=== PATIENT | male | born 1970 | race Caucasian/White ===

== ENCOUNTER 2016-06-16 10:24 | Day surgery (SDC) | payer OTHER ==
--- NOTE | 2016-06-15 19:11 | HISTORY AND PHYSICAL ---
ADMITTED: 06/16/2016 HISTORY OF PRESENT ILLNESS: The patient is a 46-year-old male who presents with a soft tissue mass on the left heel. States it has been there for quite some time. It has actually grown in size. It is now ruining his shoes and his boots. He says he has them in both, but the left is more painful. MEDICAL/SURGICAL HISTORY: Past medical history is essentially noncontributory. Past surgical history: He has had numerous shoulder and ankle surgeries. MEDICATIONS: 1. Currently on no medications. ALLERGIES: 1. HE REPORTS AN ALLERGY TO SULFA. PRIMARY CARE PROVIDER: Wayne Tuttle MD SOCIAL HISTORY: He is employed by [employer]. , does not smoke. Chews tobacco. Drinks socially. FAMILY HISTORY: Noncontributory to chief complaint. REVIEW OF SYSTEMS: A 10-point review of systems noncontributory to chief complaint. PHYSICAL EXAMINATION: GENERAL: The patient is alert and oriented x3. HEAD AND NECK: PERRLA. Normocephalic. HEART: Regular rate and rhythm. Regular S1 and S2. No murmurs, or gallops. LUNGS: Respirations clear to auscultation. No wheezing, rhonchi, or rales. ABDOMEN: Soft, tender, nondistended. No palpable nodes. Normal tones. LOWER EXTREMITY: Vascular: DP and PT pulses are palpable, +2/4. Skin texture and turgor within normal limits. Subpapillary venous plexus capillary refill within normal limits. There is a soft tissue mass of the left heel measuring approximately 2 x 1 cm. Negative transluminescence. IMPRESSION: 1. Soft tissue mass resembling a pyogenic nodule, consistent with herniation of the fat pad PLAN: The patient is scheduled for an outpatient procedure, removal of the soft tissue mass. He is well aware of the planned procedure. There are no contraindications to surgery at this time. Surgery is scheduled on an outpatient basis on 06/16/2016 at [facility].
--- NOTE | 2016-06-16 11:09 | NUR ---
PRE OP INSTRUCTIONS GIVEN AND SAFETY ISSUES DISCUSSED PT HAD QUESTIONS ANSWERED PT CONFIRMED PROCEDURE PT VERIFIED SIGNATURE PT MARKED SITE
--- NOTE | 2016-06-16 14:02 | Provider's Discharge Care Plan ---
Problem, Goal, Plan Problem List 1. Neoplasm of unspecified behavior of bone, soft tissue, and skin Goals: Improve function Instructions: Follow up as directed
--- NOTE | 2016-06-16 14:02 | Provider's Discharge Care Plan ---
Problem, Goal, Plan Problem List 1. Neoplasm of unspecified behavior of bone, soft tissue, and skin Goals: Improve function Instructions: Follow up as directed
--- NOTE | 2016-06-16 14:21 | NUR ---
AWAKE, ALERT ON ARRIVAL TO PACU. LLE ELEVATED ON PILLOW, TOES, WARM, REPORTS ABLE TO FEEL SOME LOCALIZED PAIN AT SURGICAL SITE REGION. REPORTS MIND IS SPARPER THAN THIS SPEAKING
--- NOTE | 2016-06-16 14:49 | NUR ---
PAIN LEVEL RELIEVED FROM A 6/10 TO 4/10 FOLLOWING ADMINISTRATION [employer] FENTANYL IVSEEN BY SURGEON PRIOR TO RETURN TO SCU
--- NOTE | 2016-06-16 14:53 | NUR ---
PT RETURNED FROM PACU LEFT FOOT ELEVATED ICE TO FOOT DRESSING DRY AND INTACT STATED NO DISCOMFORT
--- NOTE | 2016-06-16 15:51 | NUR ---
PT UP AT BEDSIDE HAS REMAINED COMFORTABLE ASKING TO GO HOME REVIEWED DISCHARGE INSTRUCTIONS VERBAL AND WRITTEN PT AND SPOUSE EXPRESSED UNDERSTANDING PT DISCHARGED PER WC ACCOMPANIED BY SPOUSE
--- NOTE | 2016-06-16 20:33 | OPERATIVE REPORT ---
DATE OF SURGERY: 06/16/2016 SURGEON: Salazar Campbell DPM PREOPERATIVE DIAGNOSIS: 1. Soft tissue mass, medial aspect of left heel POSTOPERATIVE DIAGNOSIS: 1. Soft tissue mass, medial aspect of left heel PROCEDURE PERFORMED: 1. Removal of soft tissue mass, left heel HEMOSTASIS: Achieved by pneumatic ankle tourniquet inflated to 250 mmHg pressure. TOURNIQUET TIME: Total tourniquet time 18 minutes. MATERIALS: 4-0 Polysorb and 4-0 Surgipro. INJECTABLES: Injected 10 mL of 0.5% bupivacaine with epinephrine 1:200,000. COMPLICATIONS: None. CONDITION: The patient tolerated anesthesia and procedure well. INDICATIONS: The patient is a 46-year-old male who has a growing mass on the proximal medial aspect of the left heel. He states it has become painful and interfered with shoe gear. He states he would like to have it removed. The mass was too large to be removed in an office setting; therefore, we elected to proceed with an operating room procedure. He is well aware of the planned procedure. No contraindications to surgery at this time. SURGICAL TECHNIQUE: The patient was brought into the operating room and placed on the table in a supine position. At this time a general anesthetic, LMA, was administered. A pneumatic tourniquet was then placed above the left ankle. The left lower extremity was prepped and draped in a normal sterile fashion. An intraoperative pause was carried out. Positive identification, proper limb, and consent form verified and confirmed. Esmarch bandage was then utilized to exsanguinate the limb. The tourniquet was then inflated. Attention was then directed to procedure 1. Removal of soft tissue mass, left heel: Attention was directed to the proximal medial aspect of the left heel where a very large mass, approximately 2 cm in diameter, was palpated. A linear incision was made overlying it, deepened by sharp and blunt dissection. The mass seemed to be a herniation of the fat pad. It was adhered down to the periosteum of the os calcis. It was removed in toto and passed from forceps to formalin. The area was inspected for any additional questionable tissue; it was clean. The area was flushed. The subcutaneous layer was reapproximated with 4-0 Polysorb and skin edges reapproximated in a running fashion with 4-0 Surgipro. Then 10 mL of 0.5% bupivacaine with epinephrine was administered locally and fanned out. A compressive dressing was applied. The tourniquet released with normal reactive hyperemia. The patient tolerated anesthesia and procedure well and left the operating room with vital signs stable. While in recovery, written instructions dispensed. Prognosis is guarded. We will await pathology report for the findings. There were no complications.
== END 2016-06-16 15:54 | disposition home or self-care (01) ==
LOC: OR SRH 10:24 → SCU SRH 10:30
PROVIDERS: Podiatrist
PROC: 0JBR0ZZ Excision of Left Foot Subcutaneous Tissue and Fascia, Open Approach (ICD-10-PCS; principal; 2016-06-16 13:00)
DX: D17.79 Benign lipomatous neoplasm of other sites (principal)
CPT/HCPCS: 29229; 29240; 50004; 60001; 70002; 80575; 83414; 84038; 84522; 90100; 95059